=== PATIENT | female | born 1965 | race Caucasian/White ===

== ENCOUNTER 2020-12-31 02:02 | Emergency (ER) | payer BC ==
[~2020-12-31] VITALS: Ht 177.8 cm; Wt 76.7 kg
[2020-12-31 02:52] VITALS: BP_SYST 135
[2020-12-31] MEDS ORDERED: HYDROcodone/ACETAMIN 5-325 MG TAB (NORCO/ VICODIN) PO ONE (04:00)
[2020-12-31 04:22] VITALS: BP_SYST 135
== END 2020-12-31 04:22 | disposition home or self-care (01) ==
LOC: SED 02:02
DX: S83.92XA Sprain of unspecified site of left knee, initial encounter (principal); W22.8XXA Striking against or struck by other objects, initial encounter; Y93.89 Activity, other specified; Y92.89 Other specified places as the place of occurrence of the external cause; Y99.8 Other external cause status
CPT/HCPCS: 73564; 99283